=== PATIENT | male | born 1960 | race Caucasian/White ===

== ENCOUNTER 2018-02-27 20:05 | Emergency (ER) | payer BC ==
--- NOTE | 2018-02-27 22:03 | RAD ---
Indication: RIGHT ankle pain for 3 weeks. Swelling. Comparison: No relevant prior exams available on the [facility] for comparison. Technique: AP, mortise, and lateral views RIGHT ankle. Report: Severe osteophytosis at the talocrural joint. Only mild joint space narrowing at the margins of the joint however assessment for joint space narrowing is limited without a weightbearing view. Talocrural joint effusion. Chronic accessory ossicles or bone fragments inferior to the medial and lateral malleoli. Negative for acute fracture or osteochondral lesion. Diffuse soft tissue swelling. 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 Associated joint effusion.
[2018-02-27] MEDS ORDERED: predniSONE TAB* 20 MG PO ONE (22:32)
[2018-02-27] MEDS: oxyCODONE/Acetamin 5/325 MG* TAB PO ONE ×2 (22:37→22:50)
[2018-02-27 22:51] VITALS: BP 152/88
--- NOTE | 2018-02-28 04:30 | ED ---
Rogelio Wright Tecjoon, scribed for Jai Valentin MD on 02/27/18 at 2101 . Lower Extremity - HPI Summary HPI Summary: This patient is a 57 year [facility] with a chief complaint of right ankle pain since approx. 6 weeks ago. Patient states that shes been to her PCP and using NATHANAEL wrap and naproxen as suggested. Patient states that the pain worsens with exertion, but he presents to ED today for a sudden surge of pain during rest. The pain is rated 3/10 in severity. Symptoms aggravated by exertion. Symptoms alleviated by nothing. 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 Patient denies swelling or redness. - History of Current Complaint Chief Complaint: EDExtremityLower Stated Complaint: RT ANKLE PAIN Time Seen by Provider: 02/27/18 20:48 Hx Obtained From: Patient Onset of Pain: Days Onset/Duration: Still Present Severity Currently: Mild Pain Intensity: 3 Pain Scale Used: 0-10 Numeric Timing: Constant Location: Is Discrete @ - right ankle Associated Signs And Symptoms: Positive: Negative - swelling or redness Aggravating Factor(s): Other - exertion Alleviating Factor(s): Nothing - Allergies/Home Medications Allergies/Adverse Reactions: Allergies Allergy/AdvReac Type Severity Reaction Status Date / Time No Known Allergies Allergy Verified 02/27/18 20:12 PMH/Surg Hx/FS Hx/Imm Hx Previously Healthy: Yes Opthamlomology History: Denies: Hx Legally Blind EENT History: Denies: Hx Deafness - Surgical History Surgery Procedure, Year, and Place: bilat knee surgery 1989 arthroscopic Infectious Disease History: No Infectious Disease History: Denies: Traveled Outside the [place] in Last 30 Days - Family History Known Family History: Positive: Hypertension - Social History Lives: With Family Alcohol Use: None Hx Substance Use: No Substance Use Type: Reports: None Hx Tobacco Use: No Smoking Status (MU): Never Smoked Tobacco Review of Systems Negative: Fever Positive: Other - right ankle pain Skin: Negative - swelling, redness All Other Systems Reviewed And Are Negative: Yes Physical Exam - Summary Physical Exam Summary: Appearance: Well appearing, no pain distress Skin: warm, dry, reflects adequate perfusion Head/face: normal Eyes: EOMI, KIERSTEN ENT: normal Neck: supple, non-tender Respiratory: CTA, breath sounds present Cardiovascular: RRR, pulses symmetrical Abdomen: non-tender, soft Bowel Sounds: present Musculoskeletal: Pain at Anterior fibular, Distal to lateral maleolis Neuro: normal, sensory motor intact, A&Ox3 Triage Information Reviewed: Yes Vital Signs On Initial Exam: Initial Vitals Temp Pulse Resp BP Pulse Ox 98.5 F 61 16 158/97 99 02/27/18 20:09 02/27/18 20:09 02/27/18 20:09 02/27/18 20:09 02/27/18 20:09 Vital Signs Reviewed: Yes Diagnostics - Vital Signs Vital Signs Temp Pulse Resp BP Pulse Ox 02/27/18 20:09 98.5 F 61 16 158/97 99 - Laboratory Lab Results: Lab Results 02/27/18 02/27/18 Range/Units 21:30 21:30 ESR 20 (0-20) mm/Hr Uric Acid 7.2 (4.4-7.6) mg/dL Lab Statement: Any lab studies that have been ordered have been reviewed, and results considered in the medical decision making process. 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 Associated joint effusion. ED physician has reviewed this radiology report. Lower Extremity Course/Dx - Course Course Of Treatment: pt with remote injury/overuse with sports. No recent. Flares from time to time but not like today. Significant degen arthritis. Labs obtained. Joint not hot, swollen or red. Air splint applied and given crutches. Start steroid. On nsaid. F/U ortho. - Diagnoses Provider Diagnoses: Osteoarthritis of ankle Discharge - Sign-Out/Discharge Documenting (check all that apply): Discharge - Discharge Plan Condition: Good Disposition: HOME Prescriptions: predniSONE TAB* [Deltasone TAB*] 50 mg PO DAILY #3 tab Patient Education Materials: Osteoarthritis (ED) Referrals: Reese Galo MD [Primary Care Provider] - Oneal Calvo MD [Medical Doctor] - Additional Instructions: Ice, elevate. Nathanael wrap for pain. Splint for comfort. Return if worse, fever, redness, new symptoms or other concerns. The documentation as recorded by the Rogelio rice Tecjoon accurately reflects the service I personally performed and the decisions made by , Jai Valentin MD.
== END 2018-02-27 22:51 | disposition home or self-care (01) ==
LOC: ED 20:05
DX: M19.071 Primary osteoarthritis, right ankle and foot (principal); M25.571 Pain in right ankle and joints of right foot
CPT/HCPCS: 36415; 84550; 85652; 86038; 87476; 87798; 99282; A9270-GY; J7512